=== PATIENT | male | born 1965 | race American Indian/Alaskan Native ===

== ENCOUNTER 2021-12-24 09:48 | Day surgery (SDC) | payer OTHER ==
--- NOTE | 2021-12-24 11:43 | Anesthesia Consultation ---
Anesthesia Consult and Med Hx Date of service: 12/24/21 - Airway Anesthetic Teeth Evaluation: Good ROM Head & Neck: Adequate Mental/Hyoid Distance: Adequate Mallampati Class: Class III Intubation Access Assessment: Possibly Difficult - Pre-Operative Health Status ASA Pre-Surgery Classification: ASA2 Proposed Anesthetic Plan: MAC - Pulmonary Hx Asthma: Yes Hx Sleep Apnea: Yes (uses CPAP) - Central Nervous System Hx Back Pain: Yes (BACK SPASMS) Hx Psychiatric Problems: No - Endocrine Hx Non-Insulin Dependent Diabetes: Yes (diet control) - Other Systems Hx Alcohol Use: No Hx Substance Use: No Hx Cancer: No
--- NOTE | 2021-12-24 11:43 | Anesthesia Day of Surgery ---
Anesthesia Day of Surgery - Day of Surgery Patient Examined: Yes Patient H&P Reviewed: Yes Patient is NPO: Yes
[2021-12-24] MEDS ORDERED: HYDROmorphone 1 MG/1 ML INJ ONE (11:47)
[2021-12-24] MEDS ORDERED: LACTATED RINGERS 1,000 ML ONE (11:47)
[2021-12-24] MEDS ORDERED: LIDOCAINE MPF (2%) 20 MG/1 ML VIAL 5 ML ONE (11:48)
[2021-12-24] MEDS ORDERED: propofoL 200 MG/20 ML VIAL IV ONE (11:48)
[2021-12-24] MEDS ORDERED: FAMOTIDINE 20 MG/2 ML INJ IV NR (12:00)
[2021-12-24] MEDS ORDERED: MIDAZOLAM 2 MG/2 ML INJ IV NR (12:00)
[2021-12-24] MEDS ORDERED: BUPIVACAINE/PF (0.5%) 5 MG/1 ML 30 ML VIAL INFILTRATI ONE ×2 (12:27→13:05)
[2021-12-24] MEDS ORDERED: HEPARIN 5,000 UNIT/1 ML VIAL ONE (12:30)
[2021-12-24] MEDS ORDERED: ceFAZolin/Water 2 GM/20 ML 2 GM/20 ML SYRINGE IV ONE (12:30)
[2021-12-24] MEDS ORDERED: LACTATED RINGERS 1,000 ML IV SCH (12:45)
[2021-12-24] MEDS ORDERED: HEPARIN 5,000 UNIT/1 ML VIAL SUB-Q NR (12:45)
[2021-12-24] MEDS ORDERED: LIDOCAINE 1%/EPINEPHRINE 1:100,000 VIAL (20 ML) INFILTRATI ONE (13:05)
[2021-12-24] MEDS ORDERED: SODIUM CHLORIDE 0.9% IRR 1,500 ML BOTTLE IR ONE (13:06)
[2021-12-24] MEDS ORDERED: ONDANSETRON 4 MG/2 ML INJ ONE (13:09)
[2021-12-24] MEDS ORDERED: HYDROcodone/ACETAMINOPHEN 5-325 MG TAB PO PRN (13:12)
[2021-12-24] MEDS ORDERED: HYDROmorphone 1 MG/1 ML INJ IV PRN (13:12)
[2021-12-24] MEDS ORDERED: ONDANSETRON 4 MG/2 ML INJ IV PRN (13:12)
--- NOTE | 2021-12-24 14:35 | Post Anesthesia Evaluation ---
- Post Anesthesia Evaluation Patient Participated: Yes Airway Patent: Yes Stable Respiratory Function: Yes Nausea/Vomiting: No Temp > 96.8F: Yes Pain Manageable: Yes Adequeate Hydration: Yes Anesthesia Complications: No
[2021-12-24 15:42] VITALS: BP 125/74
--- NOTE | 2021-12-29 07:01 | Procedure Note ---
Date of procedure: 12/24/21 Pre-op diagnosis: Left buttock mass, 1.5 cm Post-op diagnosis: same Procedure: Excision of left buttock mass, 1.5 cm Description of procedure: After MAC anesthesia, pt was repositioned prone. Left buttock was prepped and draped. Skin and SQ tissue about the mass were infiltrated with 4 ml of 0.5% Marcaine. The mass was then excised with sharp and Bovie dissection. Hemostasis of bleeding was obtained with the Bovie. Deep dermis was approximated with interrupted sutures of 3-0 Vicryl. Skin was approximated with a running subcuticular suture of 4-0 Monocryl. Skin glue was applied. Pt tolerated the procedure well and was taken to PACU in stable condition. Anesthesia: MAC Surgeon: JS LOPEZ Estimated blood loss: minimal Pathology: list (Left buttock mass) Specimen disposition: to lab Condition: stable Disposition: PACU
== END 2021-12-24 15:30 | disposition home or self-care (01) ==
LOC: OR 09:48
PROVIDERS: ATTEND Surgery
DX: R22.2 Localized swelling, mass and lump, trunk (principal); L82.1 Other seborrheic keratosis; G47.30 Sleep apnea, unspecified; J45.909 Unspecified asthma, uncomplicated; K21.9 Gastro-esophageal reflux disease without esophagitis; M06.9 Rheumatoid arthritis, unspecified; E11.9 Type 2 diabetes mellitus without complications; Z20.822 Contact with and (suspected) exposure to COVID-19; Z88.0 Allergy status to penicillin; Z79.899 Other long term (current) drug therapy; Z79.82 Long term (current) use of aspirin; Z88.8 Allergy status to other drugs, medicaments and biological substances; Z91.041 Radiographic dye allergy status; Z87.440 Personal history of urinary (tract) infections; Z98.890 Other specified postprocedural states
CPT/HCPCS: 11402; 12031; 82962; 88305; J0690; J1170; J1644; J2250; J2405; J2704; J3490; J7120; U0003; 88307